=== PATIENT | female | born 1990 | race Caucasian/White ===

== ENCOUNTER 2016-04-13 12:55 | Emergency (ER) | payer MEDICAID ==
[~2016-04-13] VITALS: Ht 157.5 cm; Wt 131.0 kg
[2016-04-13 12:58] VITALS: Ht 157.5 cm; Wt 131.0 kg
--- NOTE | 2016-04-13 14:26 | EN ---
Date/Time of Note Date/Time of Note DATE: 04/13/16 TIME: 14:26 ER Progress Note Patient was evaluated in RME. Patient will be sent to ER2 for CXR LISE LOMAS PA-C Apr 13, 2016 14:26
[2016-04-13] MEDS ORDERED: ALBU8.5H3 INH (16:43)
[2016-04-13] MEDS ORDERED: LORA1TAB54 PO (16:43)
--- NOTE | 2016-04-13 16:45 | ERD ---
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 Patient states that she had URI symptoms 2 months ago and has had a lingering cough for the last 2 months. She states that the cough comes on suddenly, throughout the day. She denies any runny nose, headache, dizziness. She denies chest pain, shortness of breath or difficulty breathing. She denies abdominal pain, nausea, vomiting or diarrhea. She denies any leg pain or swelling. Denies hemoptysis, night sweats she has taken TheraFlu for her symptoms ROS All systems reviewed and are negative except as per history of present illness. Medications Home Meds Active Scripts Cetirizine Hcl* (Cetirizine Hcl*) 5 Mg Tablet, 5 MG PO DAILY, #30 TAB Prov:SHARMIN FREIRE PA-C 04/13/16 Albuterol Sulfate* (Proair HFA*) 8.5 Gm Hfa.aer.ad, 2 PUFF INH Q4, #1 INHALER Prov:SHARMIN FREIRE PA-C 04/13/16 Allergies Allergies: Coded Allergies: No Known Allergy (Unverified , 07/18/13) PMhx/Soc History of Surgery: No Anesthesia Reaction: No Hx Neurological Disorder: No Hx Respiratory Disorders: No Hx Cardiac Disorders: No Hx Psychiatric Problems: No Hx Miscellaneous Medical Probl: No Hx Alcohol Use: No Hx Substance Use: No Hx Tobacco Use: No Physical Exam Vitals Vital Signs Date Time Temp Pulse Resp B/P Pulse Ox O2 Delivery O2 Flow Rate FiO2 04/13/16 17:53 98.2 78 18 146/78 98 Room Air 04/13/16 12:58 98.2 88 18 150/84 98 Physical Exam GENERAL: Well-developed, well-nourished obese female. Appears in no acute distress. HEAD: Normocephalic, atraumatic. ENT: Moist mucous membranes. No uvula deviation. No kissing tonsils. No exudates. NECK: Supple. No lymphadenopathy or thyromegaly. No meningismus. negative kernig. negative brudinski. LUNG: Clear to auscultation bilaterally. No rhonchi, wheezing, rales or coarse breath sounds. HEART: Regular rate and rhythm. No murmurs, rubs or gallops. ABDOMEN: No scars, ecchymosis or rashes noted. Soft, nontender, and nondistended. Positive bowel sounds in all four quadrants. No rebound tenderness , no guarding. (-) McBurneys point tenderness. No CVA tenderness. BACK: No midline tenderness. Extremities: Equal pulses bilaterally. No peripheral clubbing, cyanosis or edema. No unilateral leg swelling. Negative Homans sign NEUROLOGIC: Alert and oriented. Moving all four extremities. 5/5 strength in all extremities. Normal speech. Steady gait. SKIN: Normal color. Warm and dry. No rashes or lesions. Capillary refill < 2 seconds Procedures/MDM ER COURSE: I kept the patient and/or family informed of laboratory and diagnostic imaging results throughout the emergency room course. EKG, MONITORS, & DIAGNOSTIC IMAGING: EKG performed, read by Dr. Guadalupe 79 bpm, normal sinus rhythm, normal axis, no acute ST segment changes, no T wave inversion [place] [id number] Radiology Main Line: [phone] DIAGNOSTIC IMAGING REPORT Patient: ALICIA FOSTER : 1990 Age: 25 Sex: F MR #: [id number] DOS: 04/13/16 [facility] Ordering MD: SHARMIN FREIRE PA-C Location: FTE Room/Bed: PROCEDURE: XR Chest. CLINICAL INDICATION: chest pain, chronic cough TECHNIQUE: Single frontal view of the chest was obtained COMPARISON: 07/18/2013 FINDINGS: The heart and mediastinum are within normal limits. The lungs are clear. There is no pleural effusion or pneumothorax. RPTAT: AA IMPRESSION: No acute disease. .Carlos Metz MD, Date Time Electronically viewed and signed by .Carlos Metz MD, MD on 04/13/2016 16: 52 .S/ CC: SHARMIN FREIRE PA-C MEDICAL DECISION MAKING: This is a 25-year-old female who presents with cough. Vital signs were reviewed. Patient is afebrile. Patient is not hypoxic. Patient is not toxic or ill-appearing. Her temperature is 98.2, pulse 88, blood pressure 150/84. Patient likely has a cough of uncertain etiology. Low suspicion for pneumonia, PE, pneumothorax, ACS, epiglottitis, obstruction, TB, pertussis, meningitis, sepsis. She does not show signs of respiratory distress, no nasal flaring or retractions. PERC Criteria Assessment: Age > 50: No HR > 100: No 02 < 95%: No H/o DVT/PE: No Recent trauma/surgery: No Hemoptysis: No Exogenous Estrogen: No Unilateral Leg swelling: No Pretest probability > 15%: No [Less than 2% risk of PE. No further work up is necessary]. Low suspicion for ACS, PE, AAA, dissection, DVT. DISCHARGE: At this time, patient is stable for discharge and outpatient management with no new complaints during the ER course. Patient was sent home with pro-airPonce. Patient will be discharged home with instructions to recheck for new or worsening symptoms such as fever, nausea, weakness, LOC and to follow up with primary care in the next 1-2 days. Patient was advised to return to the ER for any new or worsening symptoms. Plan was discussed and patient and/or family understands and agrees. Home instructions were given. Departure Diagnosis: Primary Impression: Cough Condition: Stable Patient Instructions: Cough, Chronic, Uncertain Cause, (Adult) Additional Instructions: Call your primary care doctor TOMORROW for an appointment during the next 1-2 days.See the doctor sooner or return here if your condition worsens before your appointment time. SHARMIN FREIRE PA-C Apr 13, 2016 16:45
--- NOTE | 2016-04-13 16:53 | RADRPT ---
PROCEDURE: XR Chest. CLINICAL INDICATION: chest pain, chronic cough TECHNIQUE: Single frontal view of the chest was obtained COMPARISON: 07/18/2013 FINDINGS: The heart and mediastinum are within normal limits. The lungs are clear. There is no pleural effusion or pneumothorax. RPTAT: AA IMPRESSION: No acute disease. .Carlos Metz MD, MD Date Time Electronically viewed and signed by .Carlos Metz MD, on 04/13/2016 16:52 .S/
[2016-04-13] MEDS ORDERED: CETI5TAB20 PO (17:44)
[2016-04-13 17:53] VITALS: BP 146/78; PULSE 78; RESP 18; TEMP 98.2
== END 2016-04-13 17:54 | disposition home or self-care (01) ==
LOC: FTE 12:55
DX: R05 Cough (principal); R42 Dizziness and giddiness
CPT/HCPCS: 71010; 93005

== ENCOUNTER 2016-05-22 02:35 | Emergency (ER) | payer MEDICAID ==
[~2016-05-22] VITALS: Ht 165.1 cm; Wt 133.5 kg
[~2016-05-22 02:35] MED LIST: ALBU8.5H3 INH; CETI5TAB20 PO
[2016-05-22 02:43] VITALS: Ht 165.1 cm; Wt 133.5 kg
[2016-05-22] MEDS ORDERED: NAPR-260 PO (04:16)
--- NOTE | 2016-05-22 04:20 | ERD ---
ER Documentation Chief Complaint Date/Time DATE: 05/22/16 TIME: 04:17 Chief Complaint right knee pain x 3 weeks, worse today HPI This is a 25-year-old female with obesity presenting to the emergency room complaining of right knee pain for the past 3 weeks. Patient states that she had a bad step and hyperextended her right knee and caused her a lot of pain. Patient describes the pain is moderate in severity. She states that she is walking with a limp. She states the pain has worsened today. She has taken 2 Advil to 8 PM without any relief ROS All systems reviewed and are negative except as per history of present illness. Medications Home Meds Active Scripts Naproxen* (Naprosyn*) 500 Mg Tablet, 500 MG PO BID Y for PAIN AND/OR INFLAMMATION, #30 TAB Prov:LISE LOMAS PA-C 05/22/16 Cetirizine Hcl* (Cetirizine Hcl*) 5 Mg Tablet, 5 MG PO DAILY, #30 TAB Prov:SHARMIN FREIRE PA-C 04/13/16 Albuterol Sulfate* (Proair HFA*) 8.5 Gm Hfa.aer.ad, 2 PUFF INH Q4, #1 INHALER Prov:SHARMIN FREIRE PA-C 04/13/16 Allergies Allergies: Coded Allergies: No Known Allergy (Unverified , 05/22/16) PMhx/Soc History of Surgery: No Anesthesia Reaction: No Hx Neurological Disorder: No Hx Respiratory Disorders: No Hx Cardiac Disorders: No Hx Psychiatric Problems: No Hx Miscellaneous Medical Probl: No Hx Alcohol Use: No Hx Substance Use: No Hx Tobacco Use: No Physical Exam Vitals Vital Signs Date Time Temp Pulse Resp B/P Pulse Ox O2 Delivery O2 Flow Rate FiO2 05/22/16 02:43 97.9 89 20 148/79 97 Physical Exam General: WD/WN, in no apparent distress, non-toxic appearing Patient is morbidly obese HENT: NC/AT Eyes: Conjunctiva normal Neck: Supple Pulm: Clear to auscultation, normal labored breathing; no wheezing/rales/ rhonchi heard CV: Good capillary refill GI: Non-distended, no guarding Back: No masses Ext: Tender palpation peripatellar region, with evidence of ecchymosis, mild swelling, restricted range of motion due to pain full active range of motion Neuro: Moves on all fours Skin: intact Psych: Normal mood Procedures/MDM This is a 25-year-old female who is morbidly obese presenting to the emergency room complaining of right knee pain for the past 3 weeks after having a bad step and hyperextending her right knee. Patient states that the pain has worsened today. This is likely a ligamentous versus a meniscal injury. I have a low suspicion for fracture dislocation. An x-ray of the right knee was done did not show any evidence of fracture dislocation. Patient was placed in a knee immobilizer and given crutches. Patient is neurovascular intact pre-and post treatment. I discussed with patient that she is suitable to follow-up with the primary care physician to get a referral to see an orthopedist. Prescription for naproxen was provided. I discussed her to the emergency room for any worsening symptoms. Patient understands and agrees with plan Departure Diagnosis: Primary Impression: Right knee pain Chronicity: acute Qualified Code: M25.561 - Acute pain of right knee Condition: Stable Patient Instructions: Reducing Knee Pain and Swelling, Knee Pain, Meniscus Injury (Possible), Knee Pain, Uncertain Cause Referrals: [facility] YOU HAVE RECEIVED A MEDICAL SCREENING EXAM AND THE RESULTS INDICATE THAT YOU DO NOT HAVE A CONDITION THAT REQUIRES URGENT TREATMENT IN THE EMERGENCY DEPARTMENT. FURTHER EVALUATION AND TREATMENT OF YOUR CONDITION CAN WAIT UNTIL YOU ARE SEEN IN YOUR DOCTORS OFFICE WITHIN THE NEXT 1-2 DAYS. IT IS YOUR RESPONSIBILITY TO MAKE AN APPOINTMENT FOR FOLOW-UP CARE. IF YOU HAVE A PRIMARY DOCTOR --you should call your primary doctor and schedule an appointment IF YOU DO NOT HAVE A PRIMARY DOCTOR YOU CAN CALL OUR PHYSICIAN REFERRAL HOTLINE AT IF YOU CAN NOT AFFORD TO SEE A PHYSICIAN YOU CAN CHOSE FROM THE FOLLOWING [facility] [address] [facility] [address] [facility] [address] [facility] [address] [facility] [address] [facility] [address] [facility]. [facility] YOU HAVE RECEIVED A MEDICAL SCREENING EXAM AND THE RESULTS INDICATE THAT YOU DO NOT HAVE A CONDITION THAT REQUIRES URGENT TREATMENT IN THE EMERGENCY DEPARTMENT. FURTHER EVALUATION AND TREATMENT OF YOUR CONDITION CAN WAIT UNTIL YOU ARE SEEN IN YOUR DOCTORS OFFICE WITHIN THE NEXT 1-2 DAYS. IT IS YOUR RESPONSIBILITY TO MAKE AN APPOINTMENT FOR FOLOW-UP CARE. IF YOU HAVE A PRIMARY DOCTOR --you should call your primary doctor and schedule and appointment IF YOU DO NOT HAVE A PRIMARY DOCTOR YOU CAN CALL OUR PHYSICIAN REFERRAL HOTLINE AT . IF YOU CAN NOT AFFORD TO SEE A PHYSICIAN YOU CAN CHOSE FROM THE FOLLOWING [facility] INSTITUTIONS: [facility] [address] [place] [address] [facility] [address] [place], [place] [id number] [place] [address] [address] [place] [address] [facility] URGENT CARE/SPECIALTIES Additional Instructions: FOLLOW UP WITH YOUR PRIMARY CARE PHYSICIAN TOMORROW.Return to this facility if you are not improving as expected. Take all medicines as directed. Return to this facility if you are not improving as expected. LISE LOMAS PA-C May 22, 2016 04:19
--- NOTE | 2016-05-22 04:21 | RADRPT ---
PROCEDURE: RIGHT KNEE - 3 VIEWS CLINICAL INDICATION: 25-year-old female with right knee pain. TECHNIQUE: AP, lateral and oblique view of the right knee were obtained. The images reviewed on a PACS workstation. COMPARISON: None. FINDINGS: The bones appear intact, with no evidence of fracture, erosion, demineralization, or dislocation. Th e alignment of the femorotibial and patellofemoral joints appears normal. No joint space narrowing i s seen. No radiopaque foreign body is seen. IMPRESSION: Unremarkable examination of the right knee. .Angel Nur MD, MD Date Time Electronically viewed and signed by .Angel Nur MD, MD on 05/22/2016 04:21 .M/
== END 2016-05-22 04:41 | disposition home or self-care (01) ==
LOC: FTE 02:35
DX: S89.91XA Unspecified injury of right lower leg, initial encounter (principal); X50.9XXA Other and unspecified overexertion or strenuous movements or postures, initial encounter; Y92.9 Unspecified place or not applicable
CPT/HCPCS: 29505; 73562; Z7502

== ENCOUNTER 2016-08-31 08:49 | Emergency (ER) | payer MEDICAID ==
[~2016-08-31] VITALS: Ht 152.4 cm; Wt 132.0 kg
[~2016-08-31 08:49] MED LIST changes: +NAPR-260 PO
[2016-08-31 09:00] VITALS: Ht 152.4 cm; Wt 132.0 kg
--- NOTE | 2016-08-31 09:19 | ERA ---
ER Documentation Chief Complaint Date/Time DATE: 08/31/16 TIME: 09:18 Chief Complaint BILATERAL EYE PAIN AND DISCHARGE HPI Morbidly obese 26-year-old female presenting with a chief complaint of bilateral eye redness and pruritus. Left eye redness started 1 day ago and right eye redness started this morning. Patient denies any history of foreign body or foreign body sensation. Patient states that there was mild discharge this morning. Patient has been itching her eyes. Patient has not taken any medications to relieve the symptoms. Patient also describes mild abdominal pain. Patient denies fever, vomiting, anorexia, weight loss, migrating pain, constipation, postprandial abdominal pain, new or recently changed medications, genital pain or ingestion of new or undercooked food. ROS All systems reviewed and are negative except as per history of present illness. Medications Home Meds Active Scripts Naproxen* (Naprosyn*) 500 Mg Tablet, 500 MG PO BID Y for PAIN AND/OR INFLAMMATION, #30 TAB Prov:LISE LOMAS PA-C 05/22/16 Cetirizine Hcl* (Cetirizine Hcl*) 5 Mg Tablet, 5 MG PO DAILY, #30 TAB Prov:SHARMIN FREIRE PA-C 04/13/16 Albuterol Sulfate* (Proair HFA*) 8.5 Gm Hfa.aer.ad, 2 PUFF INH Q4, #1 INHALER Prov:SHARMIN FREIRE PA-C 04/13/16 Allergies Allergies: Coded Allergies: No Known Allergy (Unverified , 05/22/16) PMhx/Soc History of Surgery: No Anesthesia Reaction: No Hx Neurological Disorder: No Hx Respiratory Disorders: No Hx Cardiac Disorders: No Hx Psychiatric Problems: No Hx Miscellaneous Medical Probl: No Hx Alcohol Use: No Hx Substance Use: No Hx Tobacco Use: No Physical Exam Vitals Vital Signs Date Time Temp Pulse Resp B/P Pulse Ox O2 Delivery O2 Flow Rate FiO2 08/31/16 09:00 98.3 86 18 144/96 95 Physical Exam Const: Morbidly obese 26-year-old female Head: Atraumatic Eyes: Mild scleral injection of the eyes bilaterally. Extraocular movements intact bilaterally. PERRLA. Normal Conjunctiva ENT: Normal External Ears, Nose and Mouth. Neck: Full range of motion..~ No meningismus. Resp: Clear to auscultation bilaterally Cardio: Regular rate and rhythm, no murmurs Abd: Soft, non tender, non distended. Normal bowel sounds. Negative Stevenson' s sign. No McBurney's point tenderness and negative psoas, Rovsing's and obturator sign Skin: No petechiae or rashes Back: No midline or flank tenderness Ext: No cyanosis, or edema Neur: Awake and alert Psych: Normal Mood and Affect Results 24 hrs Laboratory Tests Test 08/31/16 09:39 Bedside Urine pH (LAB) 5.5 Bedside Urine Protein (LAB) Negative Bedside Urine Glucose (UA) Negative Bedside Urine Ketones (LAB) Negative Bedside Urine Blood Negative Bedside Urine Nitrite (LAB) Negative Bedside Urine Leukocyte Esterase (L 1+ Procedures/MDM 26-year-old female being evaluated for bilateral eye redness and pruritus. Patient's signs and symptoms are most consistent with viral conjunctivitis. At this time a very little suspicion for vision threatening acute red eye or bacterial involvement. Patient also has complaint of abdominal pain. Patient has not had symptoms like this before. Abdominal exam was unremarkable with no tenderness and negative Stevenson's sign. Due to the history of abdominal pain a urine test was taken to evaluate for infection and . Results of urine were unremarkable. Signs and symptoms of abdominal pain is most consistent with gastritis versus cholelithiasis. I have very little suspicion for cholangitis, cholecystitis, pancreatitis, appendicitis or intra-abdominal ischemia. Patient's lab results were as follows: Negative test and 1 + leukocyte esterase most likely from a dirty catch. There is no suprapubic tenderness of little suspicion for urinary tract infection. Repeat exam of the abdomen remains unremarkable. Patient is well-appearing and smiling. Patient' s vitals are stable and current condition is appropriate for discharge. Patient will be discharged with discharge instructions and return precautions. Departure Diagnosis: Primary Impression: Viral conjunctivitis of both eyes Additional Impression: Gastritis Qualified Code: K29.70 - Gastritis without bleeding, unspecified chronicity, unspecified gastritis type Condition: Stable Additional Instructions: Follow up with your PCP within the next 1-3 days for a more thorough evaluation and a possible referral to a specialist. Return the the emergency department immediately if symptoms worsen or change. If you have any questions regarding medications, ask your pharmacist or us before you leave. If any adverse reactions occur while taking your medications, discontinue the treatment and return to the emergency department immediately. Take your medications as directed, and complete the entire course of treatment. JOVITA MCFARLANE PA-C Aug 31, 2016 09:19
[2016-08-31 09:36] LABS: URINE BLOOD (Dip) POC Negative (NEGATIVE)
== END 2016-08-31 11:42 | disposition home or self-care (01) ==
LOC: FTE 08:49
DX: B30.9 Viral conjunctivitis, unspecified (principal); K29.70 Gastritis, unspecified, without bleeding; E66.01 Morbid (severe) obesity due to excess calories; Z68.43 Body mass index [BMI] 50.0-59.9, adult
CPT/HCPCS: 81003

== ENCOUNTER 2017-01-30 04:08 | Emergency (ER) | payer SELFPAY ==
[~2017-01-30] VITALS: Ht 152.4 cm; Wt 139.7 kg
[2017-01-30 04:09] VITALS: Ht 152.4 cm; Wt 139.7 kg
[2017-01-30] MEDS ORDERED: ONDANSETRON (ODT) 4 MG TAB ODT STA (06:12)
[2017-01-30] MEDS ORDERED: ACETAMINOPHEN 325 MG TAB PO ONE (06:30)
--- NOTE | 2017-01-30 07:22 | RADRPT ---
PROCEDURE: CT Brain without contrast. CLINICAL INDICATION: Headache. TECHNIQUE: A CT of the brain was performed on a [employer] 64-slice CT scanner utilizing axial imaging from the skull base through the vertex without IV contrast. Multiplanar reformatted images were made. Images were reviewed on a PACS workstation. The CTDIvol is 39.56 mGy and the DLP is 720 .23 mGycm. One or more of the following dose reduction techniques were utilized: 1.) Automated exposure control 2.) Adjustment of the mA +/- kV according to patient's size 3.) Use of iterative reconstruction technique. COMPARISON: None FINDINGS: There is no intracranial hemorrhage, mass effect, or midline shift. No extra-axial fluid collection is seen. The ventricles and sulci are normal in size and configuration. The density of the brain is normal, and the miles white matter differentiation appears well-preserved. The visualized paranasal sinuses and osseous structures are grossly unremarkable. IMPRESSION: 1. No evidence of acute intracranial pathology. 2. The brain is normal in appearance. Physician Tammie Date Time Electronically viewed and signed by Physician Tammie on 01/30/2017 07:22 RR/
--- NOTE | 2017-01-30 07:22 | RADRPT ---
PROCEDURE: CT Brain without contrast. CLINICAL INDICATION: Headache. TECHNIQUE: A CT of the brain was performed on a [employer] 64-slice CT scanner utilizing axial imaging from the skull base through the vertex without IV contrast. Multiplanar reformatted images were made. Images were reviewed on a PACS workstation. The CTDIvol is 39.56 mGy and the DLP is 720 .23 mGycm. One or more of the following dose reduction techniques were utilized: 1.) Automated exposure control 2.) Adjustment of the mA +/- kV according to patient's size 3.) Use of iterative reconstruction technique. COMPARISON: None FINDINGS: There is no intracranial hemorrhage, mass effect, or midline shift. No extra-axial fluid collection is seen. The ventricles and sulci are normal in size and configuration. The density of the brain is normal, and the miles white matter differentiation appears well-preserved. The visualized paranasal sinuses and osseous structures are grossly unremarkable. IMPRESSION: 1. No evidence of acute intracranial pathology. 2. The brain is normal in appearance. Physician Tammie Date Time Electronically viewed and signed by Physician Tammie on 01/30/2017 07:22 RR/
[2017-01-30] MEDS ORDERED: ONDA8TAB14 PO (07:26)
[2017-01-30] MEDS ORDERED: CEPH-443 PO (07:26)
[2017-01-30] MEDS ORDERED: IBUP-1542 PO (07:26)
--- NOTE | 2017-01-30 07:29 | ERD ---
ER Documentation Chief Complaint Chief Complaint chest pain/left sided headache x 1 hour HPI This 26-year-old female presents with multiple complaints. She has left-sided headache with 2 episodes of vomiting nonbilious nonbloody starting over the last hour. She also has mild cough and anterior chest pain. She denies any productive cough. She denies any sustained chest pain. She denies abdominal pain, diarrhea or urinary complaints. She denies any history of trauma. Pain is on the left side denies any visual changes. Denies any neck pain or neck stiffness. ROS All systems reviewed and are negative except as per history of present illness. Medications Home Meds Active Scripts Ibuprofen* (Motrin*) 600 Mg Tab, 600 MG PO Q6, #15 TAB Prov:HOME APONTE MD 01/30/17 Ondansetron (Ondansetron Odt) 8 Mg Tab.rapdis, 8 MG PO Q6H Y for NAUSEA AND/OR VOMITING, #8 TAB Prov:HOME APONTE MD 01/30/17 Cephalexin* (Keflex*) 500 Mg Capsule, 500 MG PO QID for 5 Days, CAP Prov:HOME APONTE MD 01/30/17 Naproxen* (Naprosyn*) 500 Mg Tablet, 500 MG PO BID Y for PAIN AND/OR INFLAMMATION, #30 TAB Prov:LISE LOMAS PA-C 05/22/16 Cetirizine Hcl* (Cetirizine Hcl*) 5 Mg Tablet, 5 MG PO DAILY, #30 TAB Prov:SHARMIN FREIRE PA-C 04/13/16 Albuterol Sulfate* (Proair HFA*) 8.5 Gm Hfa.aer.ad, 2 PUFF INH Q4, #1 INHALER Prov:SHARMIN FREIRE PA-C 04/13/16 Allergies Allergies: Coded Allergies: No Known Allergy (Unverified , 01/30/17) PMhx/Soc Medical and Surgical Hx: pt denies Medical Hx, pt denies Surgical Hx History of Surgery: No Anesthesia Reaction: No Hx Neurological Disorder: No Hx Respiratory Disorders: No Hx Cardiac Disorders: No Hx Psychiatric Problems: No Hx Miscellaneous Medical Probl: No Hx Alcohol Use: No Hx Substance Use: No Hx Tobacco Use: No Smoking Status: Never smoker Physical Exam Vitals Vital Signs Date Time Temp Pulse Resp B/P Pulse Ox O2 Delivery O2 Flow Rate FiO2 01/30/17 04:09 98.0 95 20 168/87 97 Physical Exam Const: [], Morbid obesity, [id number]. Head: Atraumatic Eyes: Normal Conjunctiva. Eyes PERRLA and extraocular movements intact. ENT: Normal External Ears, Nose and Mouth.TMs and oropharynx normal. Neck: Full range of motion..~ No meningismus. Resp: Clear to auscultation bilaterally Cardio: Regular rate and rhythm, no murmurs Abd: Soft, non tender, non distended. Normal bowel sounds Skin: No petechiae or rashes Back: No midline or flank tenderness Ext: No cyanosis, or edema no .calf swelling or Homans sign. Neur: Awake and alert no appreciable focal neurologic deficits. Normal gait. Psych: Normal Mood and Affect Results 24 hrs Laboratory Tests Test 01/30/17 06:28 Urine Color YELLOW Urine Clarity CLOUDY Urine pH 7.0 Urine Specific [place] 1.024 Urine Ketones NEGATIVEmg/dL Urine Nitrite NEGATIVEmg/dL Urine Bilirubin NEGATIVEmg/dL Urine Urobilinogen 1+mg/dL Urine Leukocyte Esterase 1+Alli/ul Urine Microscopic RBC 4/HPF Urine Microscopic WBC 15/HPF Urine Squamous Epithelial Cells FEW/HPF Urine Hemoglobin NEGATIVEmg/dL Urine Glucose NEGATIVEmg/dL Urine Total Protein NEGATIVEmg/dl Current Medications Medications (Trade) Dose Ordered Sig/Julio C Route PRN Reason Start Time Stop Time Status Last Admin Dose Admin Ondansetron HCl (Zofran Odt) 8 mg ONCE STAT ODT 01/30/17 06:12 01/30/17 06:13 DC 01/30/17 06:30 Acetaminophen (Tylenol Tab) 650 mg ONCE ONCE PO 01/30/17 06:30 01/30/17 06:31 DC 01/30/17 06:30 Cephalexin (Keflex) 500 mg ONCE ONCE PO 01/30/17 07:30 01/30/17 07:31 UNV Ibuprofen (Motrin) 600 mg ONCE ONCE PO 01/30/17 07:30 01/30/17 07:31 Procedures/MDM And shows leukocyte esterase and WBCs. Urine was sent for culture. Patient was given Tylenol, Zofran and Keflex by mouth. Given the uncertain cause of headache with no previous headaches associated with vomiting CT brain was performed which was read as normal. EKG: Rate/Rhythm: [Normal Sinus Rhythm] rate equals 92 QRS, ST, T-waves: [No changes consistent w/ acute ischemia] Impression: [No evidence of ischemia or arrhythmia] impression-normal EKG Patient presents with multiple complaints, left-sided headache, vomiting, cough and chest pain without signs of hypoxemia, signs to suggest pneumonia, pulmonary embolism the well's criteria of 0, sepsis. She does have UTI we will treat for this. She will be treated with Keflex, ibuprofen, Zofran, primary care follow-up and return precautions. Departure Diagnosis: Primary Impression: UTI (urinary tract infection) Urinary tract infection type: acute cystitis Hematuria presence: without hematuria Qualified Code: N30.00 - Acute cystitis without hematuria Additional Impression: Headache Headache type: unspecified Headache chronicity pattern: unspecified pattern Intractability: not intractable Qualified Code: R51 - Nonintractable headache, unspecified chronicity pattern, unspecified headache type Condition: Stable Patient Instructions: Understanding Urinary Tract Infections (UTIs), Headache, Unspecified Additional Instructions: Only abnormality today is signs of urinary tract infection and we will treat for this. May be viral illness. Follow-up with primary doctor this week return to ER for new or worsening symptoms. HOME APONTE MD Jan 30, 2017 07:29
[2017-01-30] MEDS ORDERED: CEPHALEXIN 500 MG CAP PO ONE (07:30)
[2017-01-30] MEDS ORDERED: IBUPROFEN 600 MG TAB PO ONE (07:30)
== END 2017-01-30 07:45 | disposition home or self-care (01) ==
LOC: FTE 04:08
DX: N30.00 Acute cystitis without hematuria (principal); R07.9 Chest pain, unspecified
CPT/HCPCS: 70450; 81001; 87086; 93005

== ENCOUNTER 2018-07-24 04:51 | Emergency (ER) | payer SELFPAY ==
[~2018-07-24] VITALS: Ht 152.4 cm; Wt 140.2 kg
[~2018-07-24 04:51] MED LIST changes: -ALBU8.5H3 INH; +ALBU8.5H8 INH; +CEPH-443 PO; +IBUP-1542 PO; -NAPR-260 PO; +NAPR-985 PO; +ONDA8TAB14 PO
[2018-07-24 04:54] VITALS: Ht 152.4 cm; Wt 140.2 kg
--- NOTE | 2018-07-24 05:29 | ERD ---
ER Documentation Chief Complaint Chief Complaint FEVER WITH DYSURIA X2DAYS HPI 27-year-old female, presents the emergency department, complaining of 2 days with dysuria, associated with increased urinary frequency, subjective fever and pelvic discomfort. The patient denies nausea or vomiting, no chills. No vaginal bleeding. The patient has been taking Advil with mild improvement of the symptoms. ROS All systems reviewed and are negative except as per history of present illness. Medications Home Meds Active Scripts Ibuprofen* (Motrin*) 400 Mg Tab, 400 MG PO Q6H PRN for PAIN AND OR ELEVATED TEMP, #30 TAB Prov:SERG CRUZ MD 07/24/18 Ciprofloxacin Hcl* (Ciprofloxacin Hcl*) 250 Mg Tablet, 250 MG PO BID, #14 TAB Prov:SERG CRUZ MD 07/24/18 Ibuprofen* (Motrin*) 600 Mg Tab, 600 MG PO Q6, #15 TAB Prov:HOME APONTE MD 01/30/17 Ondansetron (Ondansetron Odt) 8 Mg Tab.rapdis, 8 MG PO Q6H PRN for NAUSEA AND/OR VOMITING, #8 TAB Prov:HOME APONTE MD 01/30/17 Cephalexin* (Keflex*) 500 Mg Capsule, 500 MG PO QID for 5 Days, CAP Prov:HOME APONTE MD 01/30/17 Naproxen* (Naprosyn*) 500 Mg Tablet, 500 MG PO BID PRN for PAIN AND/OR INFLAMMAT ION, #30 TAB Prov:LISE LOMAS PA-C 05/22/16 Cetirizine Hcl* (Cetirizine Hcl*) 5 Mg Tablet, 5 MG PO DAILY, #30 TAB Prov:SHARMIN FREIRE PA-C 04/13/16 Albuterol Sulfate* (Proair HFA*) 8.5 Gm Hfa.aer.ad, 2 PUFF INH Q4, #1 INHALER Prov:SHARMIN FREIRE PA-C 04/13/16 Allergies Allergies: Coded Allergies: No Known Allergy (Unverified , 01/30/17) PMhx/Soc Medical and Surgical Hx: pt denies Medical Hx, pt denies Surgical Hx History of Surgery: No Anesthesia Reaction: No Hx Neurological Disorder: No Hx Respiratory Disorders: No Hx Cardiac Disorders: No Hx Psychiatric Problems: No Hx Miscellaneous Medical Probl: No Hx Alcohol Use: No Hx Substance Use: No Hx Tobacco Use: No FmHx Family History: diabetes; No coronary disease Physical Exam Vitals Vital Signs Date Temp Pulse Resp B/P (MAP) Pulse Ox O2 O2 Flow FiO2 Time Delivery Rate 07/24/18 100.7 94 19 179/77 98 04:54 (111) Physical Exam Const: No acute distress Head: Atraumatic Eyes: Normal Conjunctiva ENT: Normal External Ears, Nose and Mouth. Neck: Full range of motion. No meningismus. Resp: Clear to auscultation bilaterally Cardio: Regular rate and rhythm, no murmurs Abd: Soft, non tender, non distended. Normal bowel sounds Skin: No petechiae or rashes Back: No midline or flank tenderness Ext: No cyanosis, or edema Neur: Awake and alert Psych: Normal Mood and Affect Results 24 hrs Laboratory Tests Test 07/24/18 05:39 07/24/18 05:40 Bedside Urine pH (LAB) 6.0 Bedside Urine Protein (LAB) Trace Bedside Urine Glucose (UA) Negative Bedside Urine Ketones (LAB) Negative Bedside Urine Blood 2+ Bedside Urine Nitrite (LAB) Negative Bedside Urine Leukocyte Esterase (L 1+ POC Beta HCG, Qualitative NEGATIVE Procedures/MDM Differential diagnosis include but not limited to: UTI, colitis, gastroenteritis, kidney stones, irritable bowel syndrome, inflammatory bowel syndrome, malabsorption syndrome, cholelithiasis, food intolerance, medication side effect, pancreatitis, diverticulitis, bowel obstruction. Low suspicion for acute abdomen Physical examination and clinical presentation consistent most likely with urinary tract infection. During the ED course the patient remained stable, no new complaints. Results and clinical impression discussed with patient who agrees with management. The patient is stable to be treated outpatient and will be discharged home, some side effects of prescribed medications (headache, rash, nausea, vomiting, diarrhea, drowsiness, habituation, bleeding, hypertension, interactions with other medications) were reviewed. The patient was instructed to follow up with the primary care provider in the next 48h. If symptoms persist, worsen or new symptoms develop, then patient should return to the ED immediately. Instructions explained and given directly by me to the patient with acknowledgment and demonstrated understanding. Disclaimer: Inadvertent spelling and grammatical errors are likely due to EHR/dictation software use and do not reflect on the overall quality of patient care. Also, please note that the electronic time recorded on this note does not necessarily reflect the actual time of the patient encounter. Departure Diagnosis: Primary Impression: UTI (urinary tract infection) Condition: Stable Patient Instructions: Understanding Urinary Tract Infections (UTIs) Additional Instructions: Thank you very much for allowing us to participate in your care. Your health and safety is our top priority at [facility]. The evaluation in the emergency department has been done to rule out an acute emergency, therefore, chronic conditions like malignancy or other diseases have not been evaluated; therefore, you need to follow up with a primary care provider in the next 48h. If symptoms persist, worsen or new symptoms develop, then patient should return to the ED immediately. Call your primary care doctor TOMORROW for an appointment during the next 2-4 days and bring all the information provided. Have prescriptions filled and follow precisely the directions on the label. If the symptoms get worse and your provider is unavailable, return to the Emergency Department immediately. SERG CRUZ MD Jul 24, 2018 05:29
[2018-07-24] MEDS ORDERED: CIPR-193 PO (05:31)
[2018-07-24] MEDS ORDERED: IBUP-1561 PO (05:31)
[2018-07-24 06:01] VITALS: BP 141/73; PULSE 93; RESP 20
== END 2018-07-24 06:00 | disposition home or self-care (01) ==
LOC: FTE 04:51
DX: N39.0 Urinary tract infection, site not specified (principal)
CPT/HCPCS: 81003; 81025; 99283